=== PATIENT | male | born 1940 | race African-American/Black ===

== ENCOUNTER → 2017-01-06 | Outpatient (CLI) | payer MEDICAID, MEDICARE ==
[~2017-01-06] MED LIST: DOBUTamine HCL/D5W 500 MG/250 ML IV BAG [STRESS LAB ONLY] IV ONE; HYDR-3971 PO; LOSA50TA37 PO
[2017-01-06 12:17] VITALS: BP 159/99
[2017-01-06 12:41] VITALS: BP 137/74
== END | disposition home or self-care (01) ==
LOC: CARDMN 10:33
PROVIDERS: ATTEND Internal Medicine Cardiovascular Disease
DX: I10 Essential (primary) hypertension (principal)
CPT/HCPCS: 93017; 93306; 93350; J1250

== ENCOUNTER → 2017-02-27 | Outpatient (CLI) | payer MEDICARE ==
[~2017-02-27] MED LIST changes: -DOBUTamine HCL/D5W 500 MG/250 ML IV BAG [STRESS LAB ONLY] IV ONE
== END | disposition home or self-care (01) ==
LOC: RADPV 12:06
PROVIDERS: ATTEND Orthopaedic Surgery
DX: I77.810 Thoracic aortic ectasia (principal); R91.8 Other nonspecific abnormal finding of lung field
CPT/HCPCS: 71020

== ENCOUNTER → 2017-07-28 | Outpatient (CLI) | payer MEDICAID, MEDICARE ==
[~2017-07-28] VITALS: Ht 170.8 cm; Wt 60.5 kg
[~2017-07-28] MED LIST changes: +CloNIDine HCL 0.1 MG TABLET PO ONE
[2017-07-28 11:13] VITALS: BP 187/113
== END | disposition home or self-care (01) ==
LOC: SRCNTR 10:56
PROVIDERS: ATTEND Internal Medicine Critical Care Medicine
DX: I10 Essential (primary) hypertension (principal); M10.9 Gout, unspecified; J44.1 Chronic obstructive pulmonary disease with (acute) exacerbation; Z87.891 Personal history of nicotine dependence
CPT/HCPCS: G0463

== ENCOUNTER → 2017-08-28 | Outpatient (CLI) | payer MEDICARE, BC ==
[~2017-08-28] MED LIST changes: -CloNIDine HCL 0.1 MG TABLET PO ONE; +IPRA4AER IH; +NAPR-58 PO; +NIFE10CA PO
== END | disposition home or self-care (01) ==
LOC: RESP 10:44
PROVIDERS: ATTEND Internal Medicine Critical Care Medicine
DX: J44.1 Chronic obstructive pulmonary disease with (acute) exacerbation (principal)
CPT/HCPCS: 94010; 94726; 94727; 94729

== ENCOUNTER → 2017-08-29 | Outpatient (CLI) | payer MEDICARE, BC | END | disposition home or self-care (01) | LOC: LABPV 14:24 | PROVIDERS: ATTEND Urology | DX: Z00.00 Encounter for general adult medical examination without abnormal findings (principal) | CPT/HCPCS: 36415; G0103; 84153 ==

== ENCOUNTER → 2017-10-26 | Outpatient (CLI) | payer MEDICARE, MEDICAID | END | disposition home or self-care (01) | LOC: RADPV 13:33 | PROVIDERS: ATTEND Internal Medicine Cardiovascular Disease | DX: J43.2 Centrilobular emphysema (principal); R91.8 Other nonspecific abnormal finding of lung field; J44.9 Chronic obstructive pulmonary disease, unspecified | CPT/HCPCS: 71020 ==

== ENCOUNTER → 2017-10-27 | Outpatient (CLI) | payer MEDICARE, MEDICAID ==
[~2017-10-27] VITALS: Ht 170.2 cm; Wt 69.0 kg
[2017-10-27 14:16] VITALS: BP 153/88
== END | disposition home or self-care (01) ==
LOC: SRCNTR 14:12
PROVIDERS: ATTEND Internal Medicine Critical Care Medicine
DX: J44.1 Chronic obstructive pulmonary disease with (acute) exacerbation (principal); I10 Essential (primary) hypertension; M10.9 Gout, unspecified; Z87.891 Personal history of nicotine dependence
CPT/HCPCS: G0463

== ENCOUNTER → 2021-07-29 | Outpatient (CLI) | payer MEDICARE, BC ==
[~2021-07-29] MED LIST changes: -HYDR-3971 PO; -LOSA50TA37 PO; +NAPR-1025 PO; -NAPR-58 PO
[2021-07-29 12:54] LABS: BASOPHILS % (AUTO) 0.5 % (0.0-2.0); HEMATOCRIT 43.9 % (41-53); HEMOGLOBIN 14.4 g/dL (13.5-17.5); LYMPHOCYTES # (AUTO) 1.2 K/uL (1.0-4.8); LYMPHOCYTES % (AUTO) 8.8 % (22.0-44.0); MEAN CORPUSCULAR HEMOGLOBIN 34.7 pg (26.0-34.0); MEAN CORPUSCULAR HGB CONC 32.7 G/dL (31.0-37.0); MEAN CORPUSCULAR VOLUME 106 fL (80-100); MONOCYTES # (AUTO) 0.7 K/uL (0.1-1.0); MONOCYTES % (AUTO) 5.3 % (2.0-9.0); NEUTROPHILS # (AUTO) 10.9 K/uL (1.8-7.7); NEUTROPHILS % (AUTO) 83.4 % (40.0-70.0); PLATELET COUNT (AUTO) 328 K/uL (150-450); RED BLOOD CELL COUNT(AUTO) 4.14 MIL/uL (4.50-5.90); RED CELL DISTRIBUTION WIDTH 14.1 % (11.5-14.5)
[2021-07-29 13:03] LABS: HEMOGLOBIN A1C 4.7 % (3.8-5.6)
[2021-07-29 13:09] LABS: ALBUMIN 4.4 g/dL (3.4-5.0); BILIRUBIN,TOTAL 0.6 mg/dL (0.1-1.0); CALCIUM, TOTAL 9.6 mg/dL (8.8-10.5); CHOL/HDL RATIO 3.8 (4.2-7.3); CREATININE 1.58 mg/dL (0.60-1.30); POTASSIUM 4.4 mmol/L (3.5-5.1); TOTAL PROTEIN, SERUM 8.7 g/dL (6.4-8.2)
== END | disposition home or self-care (01) ==
LOC: LABMN 12:27
PROVIDERS: ATTEND Internal Medicine Cardiovascular Disease
DX: I10 Essential (primary) hypertension (principal); J44.9 Chronic obstructive pulmonary disease, unspecified; E78.5 Hyperlipidemia, unspecified; Z79.899 Other long term (current) drug therapy
CPT/HCPCS: 80053; 80061; 83036; 85025

== ENCOUNTER → 2021-08-04 | Outpatient (CLI) | payer MEDICARE, BC ==
[~2021-08-04] MED LIST changes: +REGADENOSON 0.4 MG/5 ML PF SYRINGE IVP ONE; +SESTAMIBI TC99M/UD ISOTOPE 1 EA INJ INJ ONE
[2021-08-04 10:44] VITALS: BP 167/88
[2021-08-04 10:53] VITALS: BP 185/93
[2021-08-04] MEDS: REGADENOSON 0.4 MG/5 ML PF SYRINGE IVP ONE (10:59)
== END | disposition home or self-care (01) ==
LOC: CARDMN 08:24
PROVIDERS: ATTEND Internal Medicine Cardiovascular Disease
DX: I34.0 Nonrheumatic mitral (valve) insufficiency (principal); I50.1 Left ventricular failure, unspecified; I25.9 Chronic ischemic heart disease, unspecified
CPT/HCPCS: 78452; 93017; 93306; A9500; J2785

== ENCOUNTER 2022-10-20 19:01 | Emergency (ER) | payer MEDICARE, BC ==
[~2022-10-20] VITALS: Ht 177.8 cm; Wt 75.0 kg
[~2022-10-20 19:01] MED LIST changes: -REGADENOSON 0.4 MG/5 ML PF SYRINGE IVP ONE; -SESTAMIBI TC99M/UD ISOTOPE 1 EA INJ INJ ONE
[2022-10-20 19:12] VITALS: BP 128/71
[2022-10-20] MEDS ORDERED: ACETAMINOPHEN 325 MG TABLET PO ONE (19:30)
[2022-10-20] MEDS ORDERED: POVIDONE-IODINE 10% 15 ML SOLUTION UD TP ONE (19:30)
[2022-10-20] MEDS ORDERED: LIDOCAINE 1% 10 ML VIAL PERC ONE (19:30)
[2022-10-20] MEDS ORDERED: SODIUM CHLORIDE 0.9% 250 ML IRRIG SOLUTION BOTTLE IRRIG ONE (19:30)
[2022-10-20] MEDS ORDERED: LIDOCAINE 1% 10 ML VIAL ID ONE (19:30)
[2022-10-20] MEDS ORDERED: LIDOCAINE 5% 36 GM OINTMENT TP ONE (19:30)
[2022-10-20] MEDS ORDERED: PERTUSS(ACELL),DIPH,TET VAC/PF 0.5 ML SYRINGE IM. ONE (19:30)
[2022-10-20] MEDS ORDERED: BACITRACIN 0.9 GM PACKET OINTMENT TP ONE (21:15)
[2022-10-20] MEDS ORDERED: CEPH-558 PO (21:51)
[2022-10-20] MEDS ORDERED: MUPI1OIN5 TP (21:51)
== END 2022-10-20 22:25 | disposition home or self-care (01) ==
LOC: EMS 19:03
DX: S01.81XA Laceration without foreign body of other part of head, initial encounter (principal); S01.311A Laceration without foreign body of right ear, initial encounter; I10 Essential (primary) hypertension; G50.0 Trigeminal neuralgia; Z98.890 Other specified postprocedural states; Z88.5 Allergy status to narcotic agent; Z91.09 Other allergy status, other than to drugs and biological substances; W18.39XA Other fall on same level, initial encounter; Y93.89 Activity, other specified; Y92.098 Other place in other non-institutional residence as the place of occurrence of the external cause; Y99.8 Other external cause status
CPT/HCPCS: 99284; 70450; 90715; 90471; 12013; J3490

== ENCOUNTER → 2023-05-31 | Outpatient (CLI) | payer MEDICARE, BC ==
[~2023-05-31] MED LIST changes: +CEPH-558 PO; +MUPI1OIN5 TP
== END | disposition home or self-care (01) ==
LOC: RADMN 13:10
PROVIDERS: ATTEND Physical Medicine & Rehabilitation
DX: J43.9 Emphysema, unspecified (principal); R05.3 Chronic cough; R91.8 Other nonspecific abnormal finding of lung field; J98.4 Other disorders of lung; J84.10 Pulmonary fibrosis, unspecified; J47.9 Bronchiectasis, uncomplicated; K44.9 Diaphragmatic hernia without obstruction or gangrene; I70.0 Atherosclerosis of aorta; N28.1 Cyst of kidney, acquired; M47.814 Spondylosis without myelopathy or radiculopathy, thoracic region
CPT/HCPCS: 71250

== ENCOUNTER 2023-06-04 09:39 | Emergency (ER) | payer MEDICARE, BC ==
[~2023-06-04] VITALS: Ht 170.2 cm; Wt 68.2 kg
[2023-06-04 09:41] VITALS: TEMP 97.9
[2023-06-04] MEDS ORDERED: ALLO-97 PO (09:47)
[2023-06-04] MEDS ORDERED: METH-659 PO (10:39)
[2023-06-04 11:07] VITALS: BP 142/83; PULSE 92; RESP 18
== END 2023-06-04 11:16 | disposition home or self-care (01) ==
LOC: EMS 09:39
DX: M62.830 Muscle spasm of back (principal); M54.50 Low back pain, unspecified; I10 Essential (primary) hypertension; Z98.890 Other specified postprocedural states; Z88.8 Allergy status to other drugs, medicaments and biological substances; V49.9XXA Car occupant (driver) (passenger) injured in unspecified traffic accident, initial encounter; Y93.89 Activity, other specified; Y92.89 Other specified places as the place of occurrence of the external cause; Y99.8 Other external cause status
CPT/HCPCS: 72131; 99284

== ENCOUNTER → 2023-06-06 | Outpatient (CLI) | payer MEDICARE, BC ==
[~2023-06-06] MED LIST changes: +ALLO-97 PO; -CEPH-558 PO; +METH-659 PO; -MUPI1OIN5 TP; -NAPR-1025 PO
[2023-06-06 14:59] LABS: HEMOGLOBIN 13.2 g/dL (13.5-17.5); MONOCYTES # (AUTO) 0.5 K/uL (0.1-1.0); NEUTROPHILS # (AUTO) 8.3 K/uL (1.8-7.7)
[2023-06-06 15:18] LABS: BASOPHILS % (AUTO) 0.6 % (0.0-2.0); HEMATOCRIT 40.1 % (41-53); LYMPHOCYTES # (AUTO) 1.2 K/uL (1.0-4.8); LYMPHOCYTES % (AUTO) 11.3 % (22.0-44.0); MEAN CORPUSCULAR HEMOGLOBIN 32.9 pg (26.0-34.0); MEAN CORPUSCULAR VOLUME 100 fL (80-100); MONOCYTES % (AUTO) 4.7 % (2.0-9.0); NEUTROPHILS % (AUTO) 80.4 % (40.0-70.0); PLATELET COUNT (AUTO) 300 K/uL (150-450); RED BLOOD CELL COUNT(AUTO) 4.02 MIL/uL (4.50-5.90); RED CELL DISTRIBUTION WIDTH 13.8 % (11.5-14.5)
[2023-06-06 15:25] LABS: BILIRUBIN,TOTAL 0.7 mg/dL (0.1-1.0); CALCIUM, TOTAL 9.7 mg/dL (8.8-10.5); CREATININE 1.89 mg/dL (0.60-1.30); POTASSIUM 4.5 mmol/L (3.5-5.1); TOTAL PROTEIN, SERUM 8.3 g/dL (6.4-8.2)
[2023-06-06 15:28] LABS: PROTHROMBIN TIME 10.3 SEC (9.4-11.6)
== END | disposition home or self-care (01) ==
LOC: LABMN 14:17
PROVIDERS: ATTEND Internal Medicine Pulmonary Disease
DX: Z01.89 Encounter for other specified special examinations (principal); I10 Essential (primary) hypertension; I25.10 Atherosclerotic heart disease of native coronary artery without angina pectoris
CPT/HCPCS: 80053; 85025; 85610; 85730

== ENCOUNTER → 2023-07-12 | Outpatient (CLI) | payer MEDICARE, BC ==
[~2023-07-12] VITALS: Ht 170.2 cm; Wt 65.0 kg
[~2023-07-12] MED LIST changes: +ATOR40TA28 PO; +NIFE-129 PO
[2023-07-12 10:01] VITALS: BP 153/76; PULSE 99; RESP 16; TEMP 98; O2SAT 96
== END | disposition home or self-care (01) ==
LOC: SRCNTR 09:36
PROVIDERS: ATTEND Internal Medicine
DX: J43.8 Other emphysema (principal)
CPT/HCPCS: G0463; Z7500

== ENCOUNTER → 2023-10-23 | Outpatient (CLI) | payer MEDICARE, BC | END | disposition home or self-care (01) | LOC: SRCNTR 12:46 | PROVIDERS: ATTEND Internal Medicine | DX: R91.1 Solitary pulmonary nodule (principal); J43.9 Emphysema, unspecified; Z87.891 Personal history of nicotine dependence | CPT/HCPCS: G0463 ==